=== PATIENT | male | born 1940 | race African-American/Black ===

== ENCOUNTER 2017-11-27 05:45 | Inpatient (IN) ==
[2017-11-27] MEDS ORDERED: VANCOMYCIN INJ 1,000 MG in SODIUM CHLORIDE 0.9% 250 ML IV ONE ×2 (06:00→17:30)
[2017-11-27] MEDS ORDERED: BACITRACIN OINT 0.9 GM PACK TOP ONE ×2 (06:42→10:05)
[2017-11-27] MEDS ORDERED: VANCOMYCIN 1,000 MG VIAL ONE (07:37)
[2017-11-27] MEDS ORDERED: ceFAZolin 1,000 MG VIAL ONE (07:38)
[2017-11-27] MEDS ORDERED: LACTATED RINGERS 1,000 ML IV SCH (08:00)
[2017-11-27] MEDS ORDERED: oxyCODONE IR 5 MG TABLET PO PRN (09:08)
[2017-11-27] MEDS ORDERED: ZALEPLON 5 MG CAPSULE PO PRN (09:08)
[2017-11-27] MEDS ORDERED: MAGNESIUM HYDROXIDE SUSP 30 ML UDCUP PO PRN (09:08)
[2017-11-27] MEDS ORDERED: MORPHINE 4 MG/1 ML VIAL IV PRN (09:08)
[2017-11-27] MEDS ORDERED: diphenhydrAMINE CAP 25 MG CAPSULE PO PRN (09:08)
[2017-11-27] MEDS ORDERED: ROPIVACAINE 0.5% 30 ML VIAL ONE (10:38)
[2017-11-27] MEDS ORDERED: PROPOFOL 200 MG/20 ML VIAL IV ONE (10:40)
[2017-11-27] MEDS ORDERED: BUPIVACAINE SPINAL 0.75% 2 ML AMP SPINAL ONE (10:41)
[2017-11-27] MEDS ORDERED: MIDAZOLAM 2 MG/2 ML VIAL ONE (10:41)
[2017-11-27] MEDS ORDERED: fentaNYL 100 MCG/2 ML VIAL ONE (10:41)
[2017-11-27] MEDS ORDERED: ETOMIDATE 40 MG/20 ML VIAL IV ONE (10:42)
[2017-11-27] MEDS ORDERED: PHENYLEPHRINE 1 MG/10 ML SYRINGE IV ONE (10:42)
[2017-11-27] MEDS ORDERED: KETAMINE 500 MG/10 ML VIAL ONE (10:42)
[2017-11-27] MEDS ORDERED: SODIUM CHLORIDE 0.9% 100 ML IV ONE (10:43)
[2017-11-27] MEDS ORDERED: LACTATED RINGERS 1,000 ML IV ONE (10:43)
[2017-11-27] MEDS: ceFAZolin 1,000 MG in SYRINGE 1 EACH IV ONE ×2 (12:02→12:13)
[2017-11-27] MEDS: KETOROLAC 15 MG/1 ML VIAL IV SCH ×3 (12:03→23:32)
[2017-11-27] MEDS: ceFAZolin 2,000 MG in PREMIX 1 EACH IV SCH ×2 (12:14→20:14)
[2017-11-27] MEDS: ACETAMINOPHEN 500 MG TABLET PO SCH ×2 (13:32→19:12)
[2017-11-27] MEDS: GABAPENTIN 600 MG TABLET PO SCH ×2 (15:19→20:05)
[2017-11-27] MEDS: DEXTROSE 5% NACL 0.45% 1,000 ML IV SCH (19:13)
[2017-11-27] MEDS: DOCUSATE SODIUM 100 MG CAPSULE PO SCH (20:05)
[2017-11-27] MEDS: FONDAPARINUX 2.5 MG/0.5 ML SYRINGE SUBCUT SCH (20:05)
[2017-11-27] MEDS: ONDANSETRON 4 MG/2 ML VIAL IV PRN (20:05)
[2017-11-27] MEDS: MORPHINE 4 MG/1 ML VIAL IV PRN (20:06)
[2017-11-27] MEDS: LATANOPROST 0.005% OPH SOLN 2.5 ML BOTTLE BOTH EYES SCH (20:14)
[2017-11-27] MEDS: TIMOLOL 0.5% OPH SOLN 5 ML BOTTLE BOTH EYES SCH (20:15)
[2017-11-28] MEDS: DEXTROSE 5% NACL 0.45% 1,000 ML IV SCH ×2 (01:55→04:10)
[2017-11-28] MEDS: ACETAMINOPHEN 500 MG TABLET PO SCH ×2 (02:21→06:11)
[2017-11-28 06:10] LABS: Basophils % 0.5 % (0.0-0.8); Eosinophils # 0.1 10*3/uL (0.0-0.87); Eosinophils % 1.8 % (0.00-10.9); Hematocrit 34.4 VOL% (42.0-52.0); Hemoglobin 11.3 GM/DL (14.0-18.0); Immature Granulocytes % 0.5 %; Immature Granulocytes Absolute 0.03 #; Lymphocytes # 1.1 10*3/uL (1.4-4.0); Lymphocytes % 18.3 % (21.2-54.2); Mean Corpuscular HGB Conc 32.8 GM/DL (32-36); Mean Corpuscular Hemoglobin 32 PG (27-34); Mean Corpuscular Volume 97.2 FL (87-102); Mean Platelet Volume 11.2 FL (9.6-12.0); Monocytes # 1.1 10*3/uL (0.11-0.8); Monocytes % 17.7 % (1.7-12.7); Neutrophils # 3.7 10*3/uL (1.4-7.4); Neutrophils % 61.2 % (38.7-73.9); Platelet Count 164 T/CUMM (130-400); Red Blood Count 3.54 MC/CUMM (3.8-5.5); Red Cell Distribution Width 14.1 % (9.3-17.3); White Blood Count 6.1 T/CUMM (4-12)
[2017-11-28] MEDS: KETOROLAC 15 MG/1 ML VIAL IV SCH (06:20)
[2017-11-28] MEDS ORDERED: KETOROLAC 15 MG/1 ML VIAL IV SCH (06:30)
[2017-11-28 06:36] LABS: Calcium 8.1 MG/DL (8.5-10.1); Osmolality,Calculated 276.7 MOS/KG (273-304); Potassium 3.6 MMOL/L (3.5-5.1)
[2017-11-28 06:38] LABS: Band Neutrophils 1 % (0-10); Eosinophils 2 % (0-10); Hypochromasia 1+; Lymphocytes 25 % (20-55); Platelet Estimate Normal; Segmented Neutrophils 62 % (50-85); Total Cells Counted 100
[2017-11-28] MEDS ORDERED: ACETAMINOPHEN 325 MG TABLET PO PRN (09:09)
[2017-11-28] MEDS: DOCUSATE SODIUM 100 MG CAPSULE PO SCH ×2 (09:18→20:49)
[2017-11-28] MEDS: GABAPENTIN 600 MG TABLET PO SCH ×3 (09:18→20:49)
[2017-11-28] MEDS: TIMOLOL 0.5% OPH SOLN 5 ML BOTTLE BOTH EYES SCH ×2 (09:18→20:54)
[2017-11-28] MEDS: MORPHINE 4 MG/1 ML VIAL IV PRN (10:40)
[2017-11-28] MEDS: CELECOXIB 200 MG CAPSULE PO SCH (14:09)
[2017-11-28] MEDS: oxyCODONE IR 5 MG TABLET PO PRN (16:28)
[2017-11-28] MEDS: FONDAPARINUX 2.5 MG/0.5 ML SYRINGE SUBCUT SCH (20:46)
[2017-11-28] MEDS: ONDANSETRON 4 MG/2 ML VIAL IV PRN (20:47)
[2017-11-28] MEDS: LATANOPROST 0.005% OPH SOLN 2.5 ML BOTTLE BOTH EYES SCH (20:54)
[2017-11-29 05:21] LABS: Basophils % 0.1 % (0.0-0.8); Eosinophils # 0.2 10*3/uL (0.0-0.87); Eosinophils % 2.8 % (0.00-10.9); Hematocrit 34.3 VOL% (42.0-52.0); Hemoglobin 11.4 GM/DL (14.0-18.0); Immature Granulocytes % 0.4 %; Immature Granulocytes Absolute 0.03 #; Lymphocytes % 12.9 % (21.2-54.2); Mean Corpuscular HGB Conc 33.2 GM/DL (32-36); Mean Corpuscular Hemoglobin 33 PG (27-34); Mean Corpuscular Volume 98.3 FL (87-102); Mean Platelet Volume 10.5 FL (9.6-12.0); Monocytes % 13.3 % (1.7-12.7); Neutrophils # 5.5 10*3/uL (1.4-7.4); Neutrophils % 70.5 % (38.7-73.9); Platelet Count 146 T/CUMM (130-400); Red Blood Count 3.49 MC/CUMM (3.8-5.5); Red Cell Distribution Width 14.1 % (9.3-17.3); White Blood Count 7.8 T/CUMM (4-12)
[2017-11-29] MEDS: CELECOXIB 200 MG CAPSULE PO SCH (09:25)
[2017-11-29] MEDS: DOCUSATE SODIUM 100 MG CAPSULE PO SCH ×2 (09:25→21:15)
[2017-11-29] MEDS: TIMOLOL 0.5% OPH SOLN 5 ML BOTTLE BOTH EYES SCH ×2 (09:25→21:15)
[2017-11-29] MEDS: GABAPENTIN 600 MG TABLET PO SCH ×3 (09:25→21:15)
[2017-11-29] MEDS: ONDANSETRON 4 MG/2 ML VIAL IV PRN (09:27)
[2017-11-29] MEDS: LATANOPROST 0.005% OPH SOLN 2.5 ML BOTTLE BOTH EYES SCH (21:15)
[2017-11-29] MEDS: FONDAPARINUX 2.5 MG/0.5 ML SYRINGE SUBCUT SCH (21:19)
[2017-11-30 07:09] LABS: Basophils % 0.3 % (0.0-0.8); Eosinophils # 0.2 10*3/uL (0.0-0.87); Eosinophils % 2.6 % (0.00-10.9); Hematocrit 33.5 VOL% (42.0-52.0); Immature Granulocytes % 0.4 %; Immature Granulocytes Absolute 0.03 #; Lymphocytes # 0.9 10*3/uL (1.4-4.0); Lymphocytes % 12.8 % (21.2-54.2); Mean Corpuscular HGB Conc 32.8 GM/DL (32-36); Mean Corpuscular Hemoglobin 32 PG (27-34); Mean Corpuscular Volume 98.2 FL (87-102); Mean Platelet Volume 10.2 FL (9.6-12.0); Monocytes # 0.7 10*3/uL (0.11-0.8); Neutrophils # 5.2 10*3/uL (1.4-7.4); Neutrophils % 73.9 % (38.7-73.9); Platelet Count 171 T/CUMM (130-400); Red Blood Count 3.41 MC/CUMM (3.8-5.5); Red Cell Distribution Width 14.3 % (9.3-17.3)
[2017-11-30] MEDS: TIMOLOL 0.5% OPH SOLN 5 ML BOTTLE BOTH EYES SCH (09:47)
[2017-11-30] MEDS: CELECOXIB 200 MG CAPSULE PO SCH (09:47)
[2017-11-30] MEDS: DOCUSATE SODIUM 100 MG CAPSULE PO SCH (09:47)
[2017-11-30] MEDS: GABAPENTIN 600 MG TABLET PO SCH (09:47)
[2017-11-30] MEDS: oxyCODONE IR 5 MG TABLET PO PRN (09:50)
[2017-11-30 11:53] VITALS: BP 151/72
== END 2017-11-30 13:25 | disposition home health service (06) | DRG 470 ==
LOC: N.OR 05:45 → N.SDSINP 05:47 → N.3E 09:08
PROVIDERS: ADMIT Orthopaedic Surgery; ATTEND Orthopaedic Surgery

== ENCOUNTER 2018-04-18 19:26 | Inpatient (IN) ==
[2018-04-18 20:25] LABS: Basophils % 0.2 % (0.0-0.8); Hematocrit 40.9 VOL% (42.0-52.0); Hemoglobin 13.6 GM/DL (14.0-18.0); Immature Granulocytes % 0.2 %; Immature Granulocytes Absolute 0.01 #; Lymphocytes # 0.2 10*3/uL (1.4-4.0); Mean Corpuscular HGB Conc 33.3 GM/DL (32-36); Mean Corpuscular Hemoglobin 31 PG (27-34); Mean Corpuscular Volume 94.2 FL (87-102); Mean Platelet Volume 10.5 FL (9.6-12.0); Monocytes # 0.1 10*3/uL (0.11-0.8); Monocytes % 1.5 % (1.7-12.7); Neutrophils # 4.5 10*3/uL (1.4-7.4); Neutrophils % 93.1 % (38.7-73.9); Platelet Count 163 T/CUMM (130-400); Red Blood Count 4.34 MC/CUMM (3.8-5.5); Red Cell Distribution Width 15.3 % (9.3-17.3); White Blood Count 4.8 T/CUMM (4-12)
[2018-04-18] MEDS ORDERED: LORazepam 2 MG/1 ML VIAL ONE (20:25)
[2018-04-18] MEDS ORDERED: SODIUM CHLORIDE 0.9% 500 ML IV STA (20:37)
[2018-04-18 20:44] LABS: Apearance,Urine Slightly Hazy (Clear); Bacteria,Urine Few /HPF (Few); Bilirubin,Urine Negative (Negative); Blood, Urine Small mg/dL (Negative); Glucose,Urine (UA) Negative (Negative); Ketones,Urine 20 mg/dL (Negative); Mucus,Urine Occasional /LPF (Occasional); Nitrite,Urine Negative (Negative); Protein,Urine 30 MG/DL; RBC,Urine 3 /HPF (0-4); Sperm,Urine Occasional /HPF (Negative); Urine Color Yellow (Yellow); Urine Specific Gravity 1.016 (1.001-1.035); WBC,Urine 30 /HPF (0-6)
[2018-04-18 20:47] LABS: PT Patient Result 11.3 SECS
[2018-04-18 20:49] LABS: Alanine Aminotransferase 29 U/L (16-61); Albumin 3.2 G/DL (3.4-5.0); Alkaline Phosphatase 79 U/L (45-117); Aspartate Amino Transferase 38 U/L (0-37); Blood Urea Nitrogen 10 MG/DL (7-18); Glucose 170 MG/DL (74-106); Potassium 3.6 MMOL/L (3.5-5.1); Sodium 136 MMOL/L (136-145); Troponin I < 0.015 NG/ML (0.00-0.045)
[2018-04-18 20:50] LABS: Lactic Acid 5.5 MMOL/L (0.4-2.0)
[2018-04-18 20:54] LABS: Lymphocytes 5 % (20-55); Macrocytosis Slight; Platelet Estimate Adequate; Segmented Neutrophils 91 % (50-85); Total Cells Counted 100
[2018-04-18 20:56] LABS: Barbiturates Screen,Urine Negative (Negative); Benzodiazepines Screen,Urine Negative (Negative); Cannabinoid Screen,Urine Negative (Negative); Opiate Screen,Urine Positive (Negative); Phencyclidine Screen,Urine Negative (Negative)
[2018-04-18] MEDS ORDERED: MAGNESIUM SULF RIDER 2 GM in PREMIX 1 EACH IV STA (21:13)
[2018-04-18] MEDS ORDERED: PIPERACILLIN/TAZOBACTAM 3,375 MG in SODIUM CHLORIDE 0.9% 100 ML IV STA (21:13)
[2018-04-18 21:27] LABS: ABG Base Excess -4.1 MMOL/L (-2.5-2.5); ABG PH 7.475 (7.35-7.45); ABG PO2 79.8 MM HG (80-95); ABG TCO2 15.1 MMOL/L (23-27); Allen Test Positive
[2018-04-18 21:28] LABS: Prolactin 17.7 NG/ML
[2018-04-18] MEDS ORDERED: ONDANSETRON 4 MG/2 ML VIAL IV PRN (21:50)
[2018-04-18] MEDS ORDERED: DOCUSATE SODIUM 100 MG CAPSULE PO PRN (21:50)
[2018-04-18] MEDS ORDERED: MORPHINE 4 MG/1 ML VIAL IV PRN (21:50)
[2018-04-18] MEDS ORDERED: diphenhydrAMINE CAP 25 MG CAPSULE PO PRN (21:50)
[2018-04-18] MEDS ORDERED: NICOTINE 21 MG/24 HR PATCH TRANSDERM PRN (21:50)
[2018-04-18] MEDS ORDERED: SODIUM CHLORIDE 0.9% 1,000 ML IV ONE (21:50)
[2018-04-18] MEDS ORDERED: ACETAMINOPHEN 325 MG TABLET PO PRN (21:50)
[2018-04-18] MEDS ORDERED: MEROPENEM 500 MG in SODIUM CHLORIDE 0.9% 100 ML IV SCH (22:00)
[2018-04-18] MEDS ORDERED: PIPERACILLIN/TAZOBACTAM 3,375 MG in SODIUM CHLORIDE 0.9% 100 ML IV SCH (23:30)
[2018-04-19] MEDS: MEROPENEM 1,000 MG in SODIUM CHLORIDE 0.9% 100 ML IV SCH ×2 (01:24→07:52)
[2018-04-19 04:01] LABS: Apearance,Urine CLOUDY (Clear); Bacteria,Urine Occasional /HPF (Few); Bilirubin,Urine Negative (Negative); Blood, Urine Moderate mg/dL (Negative); Glucose,Urine (UA) Negative (Negative); Hyaline Casts,Urine 1 /LPF (0-3); Ketones,Urine 5 mg/dL (Negative); Mucus,Urine Occasional /LPF (Occasional); Nitrite,Urine Negative (Negative); Protein,Urine Negative; RBC,Urine 56 /HPF (0-4); Renal Epithelial Cells,Urine Occasional /HPF (<1); Sperm,Urine Occasional /HPF (Negative); Squamous Epithelial Cell,Urine Occasional /HPF (0-10); Urine Color Yellow (Yellow); Urine Specific Gravity 1.017 (1.001-1.035); Urine Urobilinogen < 2.0 EU/DL (0.2-1.0); WBC,Urine 53 /HPF (0-6)
[2018-04-19 04:12] LABS: ABG Base Excess -1.2 MMOL/L (-2.5-2.5); ABG HCO3 21.4 MMOL/L (20-26); ABG Oxygen Saturation 96.4 % (95-100); ABG PCO2 29.9 MM HG (35-48); ABG PH 7.472 (7.35-7.45); ABG TCO2 22.3 MMOL/L (23-27); Allen Test Positive
[2018-04-19 06:07] LABS: Basophils % 0.2 % (0.0-0.8); Hematocrit 37.2 VOL% (42.0-52.0); Immature Granulocytes % 0.4 %; Immature Granulocytes Absolute 0.04 #; Lymphocytes # 0.3 10*3/uL (1.4-4.0); Lymphocytes % 3.3 % (21.2-54.2); Mean Corpuscular HGB Conc 32.3 GM/DL (32-36); Mean Corpuscular Hemoglobin 31 PG (27-34); Mean Corpuscular Volume 95.4 FL (87-102); Mean Platelet Volume 11.4 FL (9.6-12.0); Monocytes # 0.4 10*3/uL (0.11-0.8); Monocytes % 4.2 % (1.7-12.7); Neutrophils # 8.4 10*3/uL (1.4-7.4); Neutrophils % 91.9 % (38.7-73.9); Platelet Count 154 T/CUMM (130-400); Red Cell Distribution Width 15.8 % (9.3-17.3); White Blood Count 9.1 T/CUMM (4-12)
[2018-04-19 06:24] LABS: Albumin 2.8 G/DL (3.4-5.0); Calcium 8.5 MG/DL (8.5-10.1); Osmolality,Calculated 279.4 MOS/KG (273-304); Potassium 3.3 MMOL/L (3.5-5.1); Total Protein 6.9 G/DL (6.4-8.3)
[2018-04-19 07:01] LABS: Band Neutrophils 1 % (0-10); Lymphocytes 4 % (20-55); Platelet Estimate Adequate; Segmented Neutrophils 91 % (50-85); Total Cells Counted 100
[2018-04-19] MEDS: cefTRIAXone 2,000 MG in SYRINGE 1 EACH IV SCH (08:12)
[2018-04-19] MEDS: GABAPENTIN 600 MG TABLET PO SCH ×3 (08:13→20:51)
[2018-04-19] MEDS: PANTOPRAZOLE 40 MG TABLET PO SCH (08:13)
[2018-04-19] MEDS: ENOXAPARIN 40 MG/0.4 ML SYRINGE SUBCUT SCH (08:13)
[2018-04-19] MEDS: TIMOLOL 0.5% OPH SOLN 5 ML BOTTLE BOTH EYES SCH ×2 (08:17→20:51)
[2018-04-19] MEDS: POTASSIUM CHLORIDE 20 MEQ TABLET PO PRN ×3 (09:32→17:19)
[2018-04-19] MEDS: SODIUM CHLORIDE 0.9% 1,000 ML IV SCH (14:04)
[2018-04-19] MEDS: LATANOPROST 0.005% OPH SOLN 2.5 ML BOTTLE BOTH EYES SCH (20:51)
[2018-04-20] MEDS: SODIUM CHLORIDE 0.9% 1,000 ML IV SCH ×3 (00:35→21:14)
[2018-04-20 07:01] LABS: Basophils % 0.5 % (0.0-0.8); Eosinophils # 0.1 10*3/uL (0.0-0.87); Eosinophils % 3.6 % (0.00-10.9); Hematocrit 35.7 VOL% (42.0-52.0); Hemoglobin 11.4 GM/DL (14.0-18.0); Lymphocytes # 0.8 10*3/uL (1.4-4.0); Lymphocytes % 19.4 % (21.2-54.2); Mean Corpuscular HGB Conc 31.9 GM/DL (32-36); Mean Corpuscular Hemoglobin 31 PG (27-34); Mean Corpuscular Volume 96.2 FL (87-102); Mean Platelet Volume 10.8 FL (9.6-12.0); Monocytes # 0.5 10*3/uL (0.11-0.8); Monocytes % 12.9 % (1.7-12.7); Neutrophils # 2.5 10*3/uL (1.4-7.4); Neutrophils % 63.6 % (38.7-73.9); Platelet Count 132 T/CUMM (130-400); Red Blood Count 3.71 MC/CUMM (3.8-5.5); White Blood Count 3.9 T/CUMM (4-12)
[2018-04-20 07:22] LABS: Band Neutrophils 1 % (0-10); Eosinophils 4 % (0-10); Hypochromasia 1+; Lymphocytes 19 % (20-55); Segmented Neutrophils 61 % (50-85); Total Cells Counted 100
[2018-04-20 07:23] LABS: Macrocytosis Slight; Platelet Estimate Adequate
[2018-04-20 07:30] LABS: Albumin 2.5 G/DL (3.4-5.0); Bilirubin,Total 0.4 MG/DL (0.2-1.0); Calcium 8.1 MG/DL (8.5-10.1); Osmolality,Calculated 280.3 MOS/KG (273-304); Potassium 3.8 MMOL/L (3.5-5.1); Total Protein 6.4 G/DL (6.4-8.3)
[2018-04-20] MEDS: TIMOLOL 0.5% OPH SOLN 5 ML BOTTLE BOTH EYES SCH ×2 (09:00→21:19)
[2018-04-20] MEDS: ENOXAPARIN 40 MG/0.4 ML SYRINGE SUBCUT SCH (10:52)
[2018-04-20] MEDS: cefTRIAXone 2,000 MG in SYRINGE 1 EACH IV SCH (10:52)
[2018-04-20] MEDS: GABAPENTIN 600 MG TABLET PO SCH ×3 (10:52→21:16)
[2018-04-20] MEDS: guaiFENesin/DM ER 600-30 MG TABLET PO PRN (10:52)
[2018-04-20] MEDS: PANTOPRAZOLE 40 MG TABLET PO SCH (10:55)
[2018-04-20] MEDS ORDERED: PIPERACILLIN/TAZOBACTAM 3,375 MG in SODIUM CHLORIDE 0.9% 100 ML IV SCH (11:00)
[2018-04-20] MEDS: AMIKACIN IV SCH (18:35)
[2018-04-20] MEDS: SODIUM CHLORIDE 0.9% IV SCH (18:35)
[2018-04-20] MEDS: LATANOPROST 0.005% OPH SOLN 2.5 ML BOTTLE BOTH EYES SCH (20:52)
[2018-04-20] MEDS: MEROPENEM 500 MG in SYRINGE 1 EACH IV SCH (21:16)
[2018-04-21] MEDS: MEROPENEM 500 MG in SYRINGE 1 EACH IV SCH ×4 (01:17→20:47)
[2018-04-21 06:47] LABS: Basophils % 0.9 % (0.0-0.8); Eosinophils # 0.2 10*3/uL (0.0-0.87); Eosinophils % 5.7 % (0.00-10.9); Hematocrit 34.9 VOL% (42.0-52.0); Hemoglobin 11.4 GM/DL (14.0-18.0); Immature Granulocytes % 0.3 %; Immature Granulocytes Absolute 0.01 #; Lymphocytes # 1.2 10*3/uL (1.4-4.0); Lymphocytes % 38.2 % (21.2-54.2); Mean Corpuscular HGB Conc 32.7 GM/DL (32-36); Mean Corpuscular Hemoglobin 31 PG (27-34); Mean Corpuscular Volume 95.1 FL (87-102); Mean Platelet Volume 10.8 FL (9.6-12.0); Monocytes # 0.5 10*3/uL (0.11-0.8); Neutrophils # 1.2 10*3/uL (1.4-7.4); Neutrophils % 37.9 % (38.7-73.9); Platelet Count 148 T/CUMM (130-400); Red Blood Count 3.67 MC/CUMM (3.8-5.5); Red Cell Distribution Width 15.8 % (9.3-17.3); White Blood Count 3.2 T/CUMM (4-12)
[2018-04-21 07:22] LABS: Band Neutrophils 1 % (0-10); Eosinophils 4 % (0-10); Lymphocytes 39 % (20-55); Segmented Neutrophils 37 % (50-85); Total Cells Counted 100
[2018-04-21 07:23] LABS: Hypochromasia Slight; Platelet Estimate Adequate
[2018-04-21] MEDS ORDERED: MAGNESIUM SULF RIDER 2 GM in PREMIX 1 EACH IV ONE (10:20)
[2018-04-21] MEDS: GABAPENTIN 600 MG TABLET PO SCH ×3 (10:33→20:47)
[2018-04-21] MEDS: PANTOPRAZOLE 40 MG TABLET PO SCH (10:34)
[2018-04-21] MEDS: ENOXAPARIN 40 MG/0.4 ML SYRINGE SUBCUT SCH (10:34)
[2018-04-21] MEDS: TIMOLOL 0.5% OPH SOLN 5 ML BOTTLE BOTH EYES SCH ×2 (10:35→20:47)
[2018-04-21] MEDS: SODIUM CHLORIDE 0.9% 1,000 ML IV SCH (10:38)
[2018-04-21] MEDS: AMIKACIN IV SCH (20:47)
[2018-04-21] MEDS: SODIUM CHLORIDE 0.9% IV SCH (20:47)
[2018-04-21] MEDS: LATANOPROST 0.005% OPH SOLN 2.5 ML BOTTLE BOTH EYES SCH (20:48)
[2018-04-22] MEDS: SODIUM CHLORIDE 0.9% 1,000 ML IV SCH ×3 (02:51→19:25)
[2018-04-22] MEDS: MEROPENEM 500 MG in SYRINGE 1 EACH IV SCH ×4 (02:52→20:34)
[2018-04-22 05:55] LABS: Basophils % 0.5 % (0.0-0.8); Eosinophils # 0.2 10*3/uL (0.0-0.87); Eosinophils % 5.1 % (0.00-10.9); Hematocrit 37.3 VOL% (42.0-52.0); Hemoglobin 11.9 GM/DL (14.0-18.0); Immature Granulocytes % 0.3 %; Immature Granulocytes Absolute 0.01 #; Lymphocytes # 1.5 10*3/uL (1.4-4.0); Lymphocytes % 37.1 % (21.2-54.2); Mean Corpuscular HGB Conc 31.9 GM/DL (32-36); Mean Corpuscular Hemoglobin 30 PG (27-34); Mean Corpuscular Volume 95.2 FL (87-102); Monocytes # 0.5 10*3/uL (0.11-0.8); Monocytes % 13.7 % (1.7-12.7); Neutrophils # 1.7 10*3/uL (1.4-7.4); Neutrophils % 43.3 % (38.7-73.9); Platelet Count 182 T/CUMM (130-400); Red Blood Count 3.92 MC/CUMM (3.8-5.5); Red Cell Distribution Width 15.4 % (9.3-17.3); White Blood Count 3.9 T/CUMM (4-12)
[2018-04-22 06:12] LABS: Albumin 2.6 G/DL (3.4-5.0); Bilirubin,Total 0.5 MG/DL (0.2-1.0); Calcium 8.8 MG/DL (8.5-10.1); Osmolality,Calculated 280.3 MOS/KG (273-304); Potassium 3.7 MMOL/L (3.5-5.1); Total Protein 6.7 G/DL (6.4-8.3)
[2018-04-22] MEDS: GABAPENTIN 600 MG TABLET PO SCH ×3 (08:58→20:35)
[2018-04-22] MEDS: PANTOPRAZOLE 40 MG TABLET PO SCH (08:59)
[2018-04-22] MEDS: ENOXAPARIN 40 MG/0.4 ML SYRINGE SUBCUT SCH (08:59)
[2018-04-22] MEDS: TIMOLOL 0.5% OPH SOLN 5 ML BOTTLE BOTH EYES SCH ×2 (09:02→20:35)
[2018-04-22] MEDS: LATANOPROST 0.005% OPH SOLN 2.5 ML BOTTLE BOTH EYES SCH (20:35)
[2018-04-22] MEDS: guaiFENesin/DM ER 600-30 MG TABLET PO PRN (20:41)
[2018-04-23] MEDS: MEROPENEM 500 MG in SYRINGE 1 EACH IV SCH ×4 (01:43→21:49)
[2018-04-23] MEDS: SODIUM CHLORIDE 0.9% 1,000 ML IV SCH ×2 (02:02→13:53)
[2018-04-23 05:30] LABS: Basophils % 0.9 % (0.0-0.8); Eosinophils # 0.2 10*3/uL (0.0-0.87); Eosinophils % 4.4 % (0.00-10.9); Hematocrit 37.3 VOL% (42.0-52.0); Hemoglobin 12.1 GM/DL (14.0-18.0); Immature Granulocytes % 0.7 %; Immature Granulocytes Absolute 0.03 #; Lymphocytes # 1.8 10*3/uL (1.4-4.0); Lymphocytes % 39.1 % (21.2-54.2); Mean Corpuscular HGB Conc 32.4 GM/DL (32-36); Mean Corpuscular Hemoglobin 31 PG (27-34); Mean Corpuscular Volume 95.2 FL (87-102); Mean Platelet Volume 10.7 FL (9.6-12.0); Monocytes # 0.5 10*3/uL (0.11-0.8); Monocytes % 10.2 % (1.7-12.7); Neutrophils % 44.7 % (38.7-73.9); Platelet Count 191 T/CUMM (130-400); Red Blood Count 3.92 MC/CUMM (3.8-5.5); Red Cell Distribution Width 15.4 % (9.3-17.3); White Blood Count 4.5 T/CUMM (4-12)
[2018-04-23 05:47] LABS: Albumin 2.8 G/DL (3.4-5.0); Bilirubin,Total 0.6 MG/DL (0.2-1.0); Calcium 8.3 MG/DL (8.5-10.1); Osmolality,Calculated 282.1 MOS/KG (273-304); Potassium 3.8 MMOL/L (3.5-5.1)
[2018-04-23] MEDS: ENOXAPARIN 40 MG/0.4 ML SYRINGE SUBCUT SCH (08:25)
[2018-04-23] MEDS: PANTOPRAZOLE 40 MG TABLET PO SCH (08:25)
[2018-04-23] MEDS: GABAPENTIN 600 MG TABLET PO SCH ×3 (08:25→21:49)
[2018-04-23] MEDS: TIMOLOL 0.5% OPH SOLN 5 ML BOTTLE BOTH EYES SCH ×2 (08:26→21:49)
[2018-04-23] MEDS: LATANOPROST 0.005% OPH SOLN 2.5 ML BOTTLE BOTH EYES SCH (21:49)
[2018-04-24] MEDS: SODIUM CHLORIDE 0.9% 1,000 ML IV SCH ×2 (00:10→10:19)
[2018-04-24] MEDS: MEROPENEM 500 MG in SYRINGE 1 EACH IV SCH ×2 (02:44→08:19)
[2018-04-24 06:50] LABS: Basophils % 0.7 % (0.0-0.8); Eosinophils # 0.3 10*3/uL (0.0-0.87); Eosinophils % 4.5 % (0.00-10.9); Hematocrit 36.9 VOL% (42.0-52.0); Hemoglobin 11.9 GM/DL (14.0-18.0); Immature Granulocytes % 0.5 %; Immature Granulocytes Absolute 0.03 #; Lymphocytes # 1.8 10*3/uL (1.4-4.0); Lymphocytes % 29.4 % (21.2-54.2); Mean Corpuscular HGB Conc 32.2 GM/DL (32-36); Mean Corpuscular Hemoglobin 31 PG (27-34); Mean Corpuscular Volume 95.6 FL (87-102); Mean Platelet Volume 11.3 FL (9.6-12.0); Monocytes # 0.6 10*3/uL (0.11-0.8); Monocytes % 9.6 % (1.7-12.7); Neutrophils # 3.3 10*3/uL (1.4-7.4); Neutrophils % 55.3 % (38.7-73.9); Platelet Count 201 T/CUMM (130-400); Red Blood Count 3.86 MC/CUMM (3.8-5.5); Red Cell Distribution Width 15.5 % (9.3-17.3)
[2018-04-24 06:55] LABS: Albumin 2.6 G/DL (3.4-5.0); Bilirubin,Total 0.5 MG/DL (0.2-1.0); Calcium 8.3 MG/DL (8.5-10.1); Osmolality,Calculated 277.4 MOS/KG (273-304); Potassium 3.7 MMOL/L (3.5-5.1); Total Protein 6.4 G/DL (6.4-8.3)
[2018-04-24] MEDS: ENOXAPARIN 40 MG/0.4 ML SYRINGE SUBCUT SCH (08:19)
[2018-04-24] MEDS: PANTOPRAZOLE 40 MG TABLET PO SCH (08:19)
[2018-04-24] MEDS: GABAPENTIN 600 MG TABLET PO SCH ×3 (08:19→21:47)
[2018-04-24] MEDS: TIMOLOL 0.5% OPH SOLN 5 ML BOTTLE BOTH EYES SCH ×2 (08:21→21:48)
[2018-04-24] MEDS: ERTAPENEM 1,000 MG in SODIUM CHLORIDE 0.9% 100 ML IV SCH (13:39)
[2018-04-24] MEDS: LATANOPROST 0.005% OPH SOLN 2.5 ML BOTTLE BOTH EYES SCH (21:48)
[2018-04-25] MEDS: SODIUM CHLORIDE 0.9% 1,000 ML IV SCH ×2 (01:14→11:49)
[2018-04-25 06:02] LABS: Basophils # 0.1 10*3/uL (0.0-0.2); Basophils % 0.9 % (0.0-0.8); Eosinophils # 0.2 10*3/uL (0.0-0.87); Eosinophils % 4.4 % (0.00-10.9); Hematocrit 38.1 VOL% (42.0-52.0); Hemoglobin 12.4 GM/DL (14.0-18.0); Immature Granulocytes % 0.7 %; Immature Granulocytes Absolute 0.04 #; Lymphocytes # 1.6 10*3/uL (1.4-4.0); Mean Corpuscular HGB Conc 32.5 GM/DL (32-36); Mean Corpuscular Hemoglobin 31 PG (27-34); Mean Corpuscular Volume 95.5 FL (87-102); Mean Platelet Volume 10.8 FL (9.6-12.0); Monocytes # 0.5 10*3/uL (0.11-0.8); Monocytes % 9.6 % (1.7-12.7); Neutrophils % 54.4 % (38.7-73.9); Platelet Count 226 T/CUMM (130-400); Red Blood Count 3.99 MC/CUMM (3.8-5.5); Red Cell Distribution Width 15.5 % (9.3-17.3); White Blood Count 5.4 T/CUMM (4-12)
[2018-04-25 06:06] LABS: Albumin 2.8 G/DL (3.4-5.0); Bilirubin,Total 0.9 MG/DL (0.2-1.0); Calcium 8.5 MG/DL (8.5-10.1); Osmolality,Calculated 281.1 MOS/KG (273-304); Potassium 3.8 MMOL/L (3.5-5.1); Total Protein 6.8 G/DL (6.4-8.3)
[2018-04-25] MEDS: GABAPENTIN 600 MG TABLET PO SCH ×2 (09:54→14:40)
[2018-04-25] MEDS: ENOXAPARIN 40 MG/0.4 ML SYRINGE SUBCUT SCH (09:54)
[2018-04-25] MEDS: TIMOLOL 0.5% OPH SOLN 5 ML BOTTLE BOTH EYES SCH (09:54)
[2018-04-25] MEDS: PANTOPRAZOLE 40 MG TABLET PO SCH (09:54)
[2018-04-25] MEDS: ERTAPENEM 1,000 MG in SODIUM CHLORIDE 0.9% 100 ML IV SCH (12:17)
[2018-04-25 12:25] VITALS: BP 145/71
== END 2018-04-25 15:09 | disposition home or self-care (01) | DRG 689 ==
LOC: N.ED 19:26 → SUATTDRO 21:50 → N.EDINP 21:50 → N.5E 22:51
PROVIDERS: ADMIT Internal Medicine Infectious Disease; ATTEND Internal Medicine

== ENCOUNTER 2018-09-04 05:48 | Inpatient (IN) ==
[2018-09-04] MEDS ORDERED: ceFAZolin 1,000 MG VIAL ONE (05:59)
[2018-09-04] MEDS ORDERED: VANCOMYCIN 1,000 MG VIAL ONE (05:59)
[2018-09-04] MEDS ORDERED: ceFAZolin 1,000 MG in SYRINGE 1 EACH IV ONE (06:00)
[2018-09-04] MEDS ORDERED: VANCOMYCIN INJ 1,000 MG in SODIUM CHLORIDE 0.9% 250 ML IV ONE (06:00)
[2018-09-04] MEDS ORDERED: BACITRACIN OINT 0.9 GM PACK TOP ONE (06:36)
[2018-09-04] MEDS ORDERED: TRANEXAMIC ACID 1,000 MG/10 ML VIAL ONE (06:37)
[2018-09-04] MEDS ORDERED: FAMOTIDINE 20 MG TABLET PO ONE (06:45)
[2018-09-04] MEDS ORDERED: ACETAMINOPHEN 500 MG TABLET PO ONE (06:46)
[2018-09-04] MEDS ORDERED: BUPIVACAINE SPINAL 0.75% 2 ML AMP SPINAL ONE (07:01)
[2018-09-04] MEDS ORDERED: KETAMINE 500 MG/10 ML VIAL ONE (07:01)
[2018-09-04] MEDS ORDERED: BUPIVACAINE 0.5% 50 ML VIAL ONE (07:02)
[2018-09-04] MEDS ORDERED: EPINEPHrine 1 MG/ML VIAL ONE (07:02)
[2018-09-04] MEDS ORDERED: ACETAMINOPHEN 500 MG TABLET ONE (07:04)
[2018-09-04] MEDS ORDERED: FAMOTIDINE 20 MG TABLET ONE (07:04)
[2018-09-04] MEDS ORDERED: GABAPENTIN 400 MG CAPSULE ONE (07:04)
[2018-09-04] MEDS: GABAPENTIN 400 MG CAPSULE PO SCH ×2 (07:29→12:45)
[2018-09-04] MEDS ORDERED: DEXAMETHASONE 4 MG/1 ML VIAL ONE (07:51)
[2018-09-04] MEDS ORDERED: LACTATED RINGERS 1,000 ML IV SCH (08:00)
[2018-09-04] MEDS ORDERED: diphenhydrAMINE CAP 25 MG CAPSULE PO PRN (08:32)
[2018-09-04] MEDS ORDERED: ZALEPLON 5 MG CAPSULE PO PRN (08:32)
[2018-09-04] MEDS ORDERED: oxyCODONE IR 5 MG TABLET PO PRN ×2 (08:32)
[2018-09-04] MEDS ORDERED: MAGNESIUM HYDROXIDE SUSP 30 ML UDCUP PO PRN (08:32)
[2018-09-04] MEDS ORDERED: ONDANSETRON 4 MG/2 ML VIAL IV PRN (08:32)
[2018-09-04] MEDS: LACTATED RINGERS 1,000 ML IV SCH ×2 (09:00→16:35)
[2018-09-04] MEDS ORDERED: PROPOFOL 200 MG/20 ML VIAL IV ONE ×2 (10:28→10:29)
[2018-09-04] MEDS ORDERED: MIDAZOLAM 2 MG/2 ML VIAL ONE (10:28)
[2018-09-04] MEDS ORDERED: ONDANSETRON 4 MG/2 ML VIAL ONE (10:29)
[2018-09-04] MEDS ORDERED: fentaNYL 100 MCG/2 ML VIAL ONE (10:29)
[2018-09-04] MEDS ORDERED: LACTATED RINGERS 1,000 ML IV ONE (10:29)
[2018-09-04] MEDS ORDERED: GLYCOPYRROLATE 0.4 MG/2 ML VIAL ONE (10:29)
[2018-09-04] MEDS ORDERED: ROCURONIUM 100 MG/10 ML VIAL IV ONE (10:29)
[2018-09-04] MEDS ORDERED: NEOSTIGMINE 10 MG/10 ML VIAL ONE (10:29)
[2018-09-04] MEDS ORDERED: ALBUTEROL/IPRATROPIUM 3 ML NEB RESP TX ONE (10:35)
[2018-09-04] MEDS: KETOROLAC 15 MG/1 ML VIAL IV SCH ×2 (12:51→20:50)
[2018-09-04] MEDS: ACETAMINOPHEN 500 MG TABLET PO SCH ×2 (12:55→20:49)
[2018-09-04] MEDS: DOCUSATE SODIUM 100 MG CAPSULE PO SCH ×2 (12:58→21:21)
[2018-09-04] MEDS: ceFAZolin 2,000 MG in PREMIX 1 EACH IV SCH ×2 (13:08→21:21)
[2018-09-04] MEDS: MORPHINE 4 MG/1 ML VIAL IV PRN (14:56)
[2018-09-04] MEDS: GABAPENTIN 600 MG TABLET PO SCH ×2 (15:01→21:21)
[2018-09-04] MEDS: LATANOPROST 0.005% OPH SOLN 2.5 ML BOTTLE BOTH EYES SCH (21:20)
[2018-09-04] MEDS: TIMOLOL 0.5% OPH SOLN 5 ML BOTTLE BOTH EYES SCH (21:20)
[2018-09-05] MEDS: LACTATED RINGERS 1,000 ML IV SCH ×2 (01:12→04:06)
[2018-09-05] MEDS: ACETAMINOPHEN 500 MG TABLET PO SCH ×2 (03:53→08:38)
[2018-09-05] MEDS: KETOROLAC 15 MG/1 ML VIAL IV SCH ×2 (03:54→08:39)
[2018-09-05] MEDS: FONDAPARINUX 2.5 MG/0.5 ML SYRINGE SUBCUT SCH (03:56)
[2018-09-05 05:18] LABS: Basophils % 0.4 % (0.0-0.8); Eosinophils % 0.6 % (0.00-10.9); Hematocrit 37.5 VOL% (42.0-52.0); Hemoglobin 11.6 GM/DL (14.0-18.0); Immature Granulocytes % 0.4 %; Immature Granulocytes Absolute 0.03 #; Lymphocytes # 1.4 10*3/uL (1.4-4.0); Lymphocytes % 20.7 % (21.2-54.2); Mean Corpuscular HGB Conc 30.9 GM/DL (32-36); Mean Corpuscular Volume 101.4 FL (87-102); Mean Platelet Volume 11.7 FL (9.6-12.0); Monocytes % 13.2 % (1.7-12.7); Neutrophils % 64.7 % (38.7-73.9); Platelet Count 116 T/CUMM (130-400); Red Cell Distribution Width 14.2 % (9.3-17.3); White Blood Count 6.9 T/CUMM (4-12)
[2018-09-05 05:43] LABS: Calcium 8.5 MG/DL (8.5-10.1); Osmolality,Calculated 276.5 MOS/KG (273-304)
[2018-09-05] MEDS: GABAPENTIN 600 MG TABLET PO SCH ×3 (08:38→21:26)
[2018-09-05] MEDS: DOCUSATE SODIUM 100 MG CAPSULE PO SCH ×2 (08:39→21:26)
[2018-09-05] MEDS: GABAPENTIN 400 MG CAPSULE PO SCH (09:14)
[2018-09-05] MEDS: FINASTERIDE 5 MG TABLET PO SCH (14:00)
[2018-09-05] MEDS: TAMSULOSIN 0.4 MG CAPSULE PO SCH ×2 (14:00→21:26)
[2018-09-05] MEDS: CELECOXIB 200 MG CAPSULE PO SCH (14:03)
[2018-09-05] MEDS: MORPHINE 4 MG/1 ML VIAL IV PRN ×3 (15:02→23:42)
[2018-09-05] MEDS: TIMOLOL 0.5% OPH SOLN 5 ML BOTTLE BOTH EYES SCH (21:29)
[2018-09-05] MEDS: LATANOPROST 0.005% OPH SOLN 2.5 ML BOTTLE BOTH EYES SCH (22:30)
[2018-09-06] MEDS: FONDAPARINUX 2.5 MG/0.5 ML SYRINGE SUBCUT SCH (03:47)
[2018-09-06 05:30] LABS: Basophils % 0.2 % (0.0-0.8); Eosinophils # 0.2 10*3/uL (0.0-0.87); Eosinophils % 2.2 % (0.00-10.9); Hematocrit 36.9 VOL% (42.0-52.0); Hemoglobin 11.7 GM/DL (14.0-18.0); Immature Granulocytes % 0.4 %; Immature Granulocytes Absolute 0.03 #; Lymphocytes # 1.3 10*3/uL (1.4-4.0); Lymphocytes % 16.3 % (21.2-54.2); Mean Corpuscular HGB Conc 31.7 GM/DL (32-36); Mean Corpuscular Volume 98.4 FL (87-102); Mean Platelet Volume 10.7 FL (9.6-12.0); Monocytes % 11.4 % (1.7-12.7); Neutrophils % 69.5 % (38.7-73.9); Platelet Count 145 T/CUMM (130-400); Red Blood Count 3.75 MC/CUMM (3.8-5.5); Red Cell Distribution Width 14.2 % (9.3-17.3); White Blood Count 8.2 T/CUMM (4-12)
[2018-09-06] MEDS: TAMSULOSIN 0.4 MG CAPSULE PO SCH (08:32)
[2018-09-06] MEDS: DOCUSATE SODIUM 100 MG CAPSULE PO SCH (08:32)
[2018-09-06] MEDS: GABAPENTIN 600 MG TABLET PO SCH (08:32)
[2018-09-06] MEDS: FINASTERIDE 5 MG TABLET PO SCH (08:32)
[2018-09-06] MEDS: CELECOXIB 200 MG CAPSULE PO SCH (08:32)
[2018-09-06] MEDS: GABAPENTIN 400 MG CAPSULE PO SCH (09:32)
[2018-09-06 11:49] VITALS: BP 144/84
== END 2018-09-06 14:32 | disposition home health service (06) | DRG 470 ==
LOC: N.SDSINP 05:48 → N.OR 05:48 → N.SDSINP 08:32 → N.3E 11:06
PROVIDERS: ADMIT Orthopaedic Surgery; ATTEND Orthopaedic Surgery

== ENCOUNTER 2019-11-07 07:24 | Observation (INO) ==
[2019-11-07] MEDS ORDERED: ASPIRIN 325 MG TABLET PO STA (08:15)
[2019-11-07] MEDS ORDERED: NITROGLYCERIN 2% OINT 1 INCH/GM PACK TOP STA (08:15)
[2019-11-07] MEDS ORDERED: ALUM/MAG/SIMETH/LIDO VISC 1:1 30 ML BOTTLE PO STA (08:15)
[2019-11-07] MEDS ORDERED: ENOXAPARIN 100 MG/ML SYRINGE SUBCUT STA (08:15)
[2019-11-07 08:28] LABS: Basophils % 0.6 % (0.0-0.8); Eosinophils # 0.1 10*3/uL (0.0-0.87); Eosinophils % 2.8 % (0.00-10.9); Hematocrit 41.7 VOL% (42.0-52.0); Hemoglobin 13.7 GM/DL (14.0-18.0); Immature Granulocytes % 0.4 %; Immature Granulocytes Absolute 0.02 #; Lymphocytes % 21.9 % (21.2-54.2); Mean Corpuscular HGB Conc 32.9 GM/DL (32-36); Mean Corpuscular Volume 99.3 FL (87-102); Monocytes % 9.8 % (1.7-12.7); Neutrophils % 64.5 % (38.7-73.9); Platelet Count 202 T/CUMM (130-400); White Blood Count 4.7 T/CUMM (4-12)
[2019-11-07 08:39] LABS: Partial Thromboplastin Time 30.8 SECS (23.9-33.8)
[2019-11-07 08:45] LABS: Albumin 3.3 G/DL (3.4-5.0); Bilirubin,Total 0.5 MG/DL (0.2-1.0); Calcium 8.5 MG/DL (8.5-10.1); Osmolality,Calculated 277.5 MOS/KG (273-304); Total Protein 6.9 G/DL (6.4-8.3)
[2019-11-07] MEDS ORDERED: carvediloL 3.125 MG TABLET PO STA (09:24)
[2019-11-07] MEDS ORDERED: ZALEPLON 5 MG CAPSULE PO PRN (09:30)
[2019-11-07] MEDS ORDERED: diphenhydrAMINE CAP 25 MG CAPSULE PO PRN (09:30)
[2019-11-07] MEDS ORDERED: DOCUSATE SODIUM 100 MG CAPSULE PO PRN (09:30)
[2019-11-07] MEDS ORDERED: ALUMINUM/MAGNES/SIMETH MAX STR 30 ML UDCUP PO PRN (09:30)
[2019-11-07] MEDS ORDERED: LACTULOSE 20 GM/30 ML UDCUP PO PRN (09:30)
[2019-11-07] MEDS ORDERED: hydrALAZINE 20 MG/1 ML VIAL IV PRN (09:30)
[2019-11-07] MEDS ORDERED: BISACODYL 5 MG TABLET PO PRN (09:30)
[2019-11-07] MEDS ORDERED: GLUCAGON 1 MG VIAL IM PRN (09:30)
[2019-11-07] MEDS ORDERED: DEXTROSE 50% 25 GM/50 ML VIAL IV PRN (09:30)
[2019-11-07] MEDS ORDERED: traZODone 50 MG TABLET PO PRN (09:30)
[2019-11-07] MEDS ORDERED: NICOTINE 21 MG/24 HR PATCH TRANSDERM PRN (09:30)
[2019-11-07] MEDS ORDERED: ONDANSETRON 4 MG/2 ML VIAL IV PRN (09:30)
[2019-11-07] MEDS ORDERED: SIMETHICONE CHEW 125 MG TABLET PO PRN (09:30)
[2019-11-07] MEDS ORDERED: ACETAMINOPHEN 325 MG TABLET PO PRN (09:30)
[2019-11-07] MEDS ORDERED: CALCIUM CARBONATE CHEW 500 MG TABLET PO PRN (09:30)
[2019-11-07] MEDS ORDERED: guaiFENesin/DM ER 600-30 MG TABLET PO PRN (09:30)
[2019-11-07 09:44] LABS: Apearance,Urine CLEAR (Clear); Bilirubin,Urine Negative (Negative); Blood, Urine Negative (Negative); Glucose,Urine (UA) 50 mg/dL (Negative); Ketones,Urine Negative (Negative); Mucus,Urine Occasional /LPF (Occasional); Nitrite,Urine Negative (Negative); Protein,Urine Negative; RBC,Urine 2 /HPF (0-4); Sperm,Urine Occasional /HPF (Negative); Squamous Epithelial Cell,Urine Occasional /HPF (0-10); Urine Color Yellow (Yellow); Urine Specific Gravity 1.027 (1.001-1.035); Urine Urobilinogen < 2.0 EU/DL (0.2-1.0); WBC,Urine 2 /HPF (0-6)
[2019-11-07 11:42] LABS: Free T4 (Free Thyroxine) 0.89 NG/DL (0.76-1.46); Thyroid Stimulating Hormone 1.73 uIU/ml (0.358-3.74)
[2019-11-07] MEDS: amLODIPine 5 MG TABLET PO SCH (14:37)
[2019-11-07] MEDS: GABAPENTIN 600 MG TABLET PO SCH ×2 (14:37→21:26)
[2019-11-07] MEDS ORDERED: TIMOLOL 0.5% OPH SOLN 5 ML BOTTLE BOTH EYES SCH (21:00)
[2019-11-07] MEDS ORDERED: carvediloL 6.25 MG TABLET PO SCH (21:00)
[2019-11-07] MEDS ORDERED: LATANOPROST 0.005% OPH SOLN 2.5 ML BOTTLE BOTH EYES SCH (21:00)
[2019-11-07] MEDS: ENOXAPARIN 40 MG/0.4 ML SYRINGE SUBCUT SCH (21:26)
[2019-11-07] MEDS: TAMSULOSIN 0.4 MG CAPSULE PO SCH (21:26)
[2019-11-08 05:37] LABS: Basophils % 0.8 % (0.0-0.8); Eosinophils # 0.1 10*3/uL (0.0-0.87); Eosinophils % 2.5 % (0.00-10.9); Hematocrit 41.6 VOL% (42.0-52.0); Hemoglobin 14.1 GM/DL (14.0-18.0); Immature Granulocytes % 0.2 %; Immature Granulocytes Absolute 0.01 #; Lymphocytes # 1.2 10*3/uL (1.4-4.0); Lymphocytes % 22.9 % (21.2-54.2); Mean Corpuscular HGB Conc 33.9 GM/DL (32-36); Mean Corpuscular Volume 97.7 FL (87-102); Monocytes % 9.5 % (1.7-12.7); Neutrophils % 64.1 % (38.7-73.9); Platelet Count 185 T/CUMM (130-400); Red Blood Count 4.26 MC/CUMM (3.8-5.5); Red Cell Distribution Width 13.9 % (9.3-17.3); White Blood Count 5.3 T/CUMM (4-12)
[2019-11-08 06:03] LABS: Risk Ratio 3.59; VLDL CHOLESTEROL 14.6 MG/DL
[2019-11-08 06:19] LABS: Bilirubin,Total 1.2 MG/DL (0.2-1.0); Calcium 8.8 MG/DL (8.5-10.1); Osmolality,Calculated 279.5 MOS/KG (273-304)
[2019-11-08 07:54] VITALS: BP 130/72
[2019-11-08] MEDS ORDERED: FINASTERIDE 5 MG TABLET PO SCH (09:00)
[2019-11-08] MEDS ORDERED: MONTELUKAST 10 MG TABLET PO SCH (09:00)
[2019-11-08] MEDS ORDERED: OXYBUTYNIN XL 5 MG TABLET PO SCH (09:00)
[2019-11-08] MEDS ORDERED: ASPIRIN 325 MG TABLET PO SCH (09:00)
[2019-11-08] MEDS ORDERED: PANTOPRAZOLE 40 MG TABLET PO SCH (09:00)
[2019-11-08] MEDS ORDERED: ASPIRIN EC 81 MG TABLET PO SCH (09:00)
[2019-11-08] MEDS ORDERED: cefTRIAXone 1,000 MG in SYRINGE 1 EACH IV ONE (09:01)
[2019-11-08] MEDS: TAMSULOSIN 0.4 MG CAPSULE PO SCH (09:14)
[2019-11-08] MEDS: ENOXAPARIN 40 MG/0.4 ML SYRINGE SUBCUT SCH (09:15)
[2019-11-08] MEDS: amLODIPine 5 MG TABLET PO SCH (09:15)
[2019-11-08] MEDS: GABAPENTIN 600 MG TABLET PO SCH (09:15)
== END 2019-11-08 09:42 | disposition home or self-care (01) ==
LOC: N.ED 07:24 → N.EDINP 07:24 → N.TELEN 10:40
PROVIDERS: ADMIT Family Medicine; ATTEND Family Medicine